=== PATIENT | female | born 1995 | race Caucasian/White ===

== ENCOUNTER 2018-12-01 19:17 | Emergency (ER) | payer BC ==
[2018-12-01] MEDS ORDERED: Acetaminophen 325 MG Tab PO ONE (19:49)
[2018-12-01] MEDS ORDERED: Sodium Chloride 0.9% 1,000 ML IV ONE (19:49)
--- NOTE | 2018-12-01 20:05 | EDM.PDOC ---
ED HPI GENERAL MEDICAL PROBLEM - General Chief Complaint: Chest Pain Stated Complaint: CHEST PAIN, DIFFICULTY BREATHING Time Seen by Provider: 12/01/18 19:55 Source of Information: Reports: Patient History Limitations: Reports: No Limitations - History of Present Illness INITIAL COMMENTS - FREE TEXT/NARRATIVE: This 23 yo female patient reports to the ED with a headache (started yesterday) and chest pain (started this afternoon). The patient reports she took Tylenol, but did not get any relief. The patient reports increased pressure in her head. The patient reports her chest pain starts near her sternum and radiates to the left side of chest. Onset: Today (chest pain ), Other (head congestion and pressure started yesterday) Duration: Constant, Getting Worse Location: Reports: Head, Chest Quality: Reports: Other Severity: Moderate Improves with: Reports: None Worsens with: Reports: None Associated Symptoms: Reports: Cough, Headaches, Shortness of Breath - Related Data Allergies Allergy/AdvReac Type Severity Reaction Status Date / Time No Known Allergies Allergy Verified 12/01/18 19:49 Home Meds: Home Meds . [No Known Home Meds] 12/01/18 [History] ED ROS GENERAL - Review of Systems Review Of Systems: ROS reveals no pertinent complaints other than HPI. ED EXAM, GENERAL - Physical Exam Exam: See Below Exam Limited By: No Limitations General Appearance: Alert, WD/WN, Moderate Distress Eye Exam: Bilateral Eye: EOMI, Normal Inspection, PERRL Ears: Normal External Exam, Normal Canal, Hearing Grossly Normal, Normal TMs Nose: Normal Inspection, Normal Mucosa, No Blood, Clear Rhinorrhea Throat/Mouth: Normal Inspection, Normal Lips, Normal Teeth, Normal Gums, Normal Oropharynx, Normal Voice, No Airway Compromise Head: Sinus Tenderness (right maxillary) Neck: Normal Inspection, Supple, Non-Tender, Full Range of Motion Respiratory/Chest: No Respiratory Distress, Lungs Clear, Normal Breath Sounds, No Accessory Muscle Use, Chest Non-Tender Cardiovascular: Normal Peripheral Pulses, Regular Rate, Rhythm, No Edema, No Gallop, No JVD, No Murmur, No Rub GI/Abdominal: Normal Bowel Sounds, Soft, Non-Tender, No Organomegaly, No Distention, No Abnormal Bruit, No Mass (Female) Exam: Deferred Rectal (Female) Exam: Deferred Extremities: Normal Inspection, Normal Range of Motion, Non-Tender, Normal Capillary Refill, No Pedal Edema Neurological: Alert, Oriented, CN II-XII Intact, Normal Cognition, Normal Gait, Normal Reflexes, No Motor/Sensory Deficits Psychiatric: Anxious, Tearful Skin Exam: Warm, Dry, Intact, Normal Color, No Rash Lymphatic: No Adenopathy Course - Vital Signs Last Recorded V/S: Last Vital Signs Temp 39.2 C H 12/01/18 19:24 Pulse 111 H 12/01/18 19:24 Resp 16 12/01/18 19:24 BP 130/75 12/01/18 19:24 Pulse Ox 97 12/01/18 19:24 - Orders/Labs/Meds Orders: Active Orders 24 hr Category Date Time Status EKG Documentation Completion [RC] URGENT Care 12/01/18 20:00 Active CULTURE STREP A CONFIRMATION [] Stat Lab 12/01/18 19:31 Results STREP SCRN A RAPID W CULT CONF [] Stat Lab 12/01/18 19:31 Results cefTRIAXone [Rocephin] Med 12/01/18 21:05 Once 1,000 mg IVPUSH ONETIME ONE Labs: Laboratory Tests 12/01/18 12/01/18 12/01/18 Range/Units 20:04 20:04 20:04 WBC 3.1 L (5.0-10.0) 10^3/uL RBC 4.93 (4.2-5.4) 10^6/uL Hgb 13.0 (12.0-16.0) g/dL Hct 39.5 (37.0-47.0) % MCV 80.1 (80-100) fL MCH 26.4 L (27.0-34.0) pg MCHC 32.9 L (33.0-35.0) g/dL Plt Count 198 (150-450) 10^3/uL Neut % (Auto) 68.8 (42.2-75.2) % Lymph % (Auto) 18.7 L (20.5-50.1) % Gooding % (Auto) 11.9 H (2-8) % Eos % (Auto) 0.0 L (1.0-3.0) % Baso % (Auto) 0.6 (0.0-1.0) % D-Dimer, Quantitative 334 (0-400) ng/mL Sodium 135 (135-145) mmol/L Potassium 3.4 L (3.6-5.0) mmol/L Chloride 101 (101-111) mmol/L Carbon Dioxide 24.0 (21.0-31.0) mmol/L Anion Gap 13.4 BUN 12 (7-18) mg/dL Creatinine 0.9 (0.6-1.3) mg/dL Est Cr Clr Drug Dosing 92.56 mL/min Estimated GFR (MDRD) > 60 BUN/Creatinine Ratio 13.33 Glucose 108 H (74-105) mg/dL Calcium 9.0 (8.4-10.2) mg/dl Total Bilirubin 0.6 (0.2-1.0) mg/dL AST 23 (10-42) IU/L ALT 14 (10-60) IU/L Alkaline Phosphatase 61 (42-121) IU/L Troponin I (0.00-0.02) ng/ml Total Protein 7.7 (6.7-8.2) g/dl Albumin 4.4 (3.2-5.5) g/dl Globulin 3.3 Albumin/Globulin Ratio 1.33 // Range/Units 20:04 WBC (5.0-10.0) 10^3/uL RBC (4.2-5.4) 10^6/uL Hgb (12.0-16.0) g/dL Hct (37.0-47.0) % MCV (80-100) fL MCH (27.0-34.0) pg MCHC (33.0-35.0) g/dL Plt Count (150-450) 10^3/uL Neut % (Auto) (42.2-75.2) % Lymph % (Auto) (20.5-50.1) % Gooding % (Auto) (2-8) % Eos % (Auto) (1.0-3.0) % Baso % (Auto) (0.0-1.0) % D-Dimer, Quantitative (0-400) ng/mL Sodium (135-145) mmol/L Potassium (3.6-5.0) mmol/L Chloride (101-111) mmol/L Carbon Dioxide (21.0-31.0) mmol/L Anion Gap BUN (7-18) mg/dL Creatinine (0.6-1.3) mg/dL Est Cr Clr Drug Dosing mL/min Estimated GFR (MDRD) BUN/Creatinine Ratio Glucose (74-105) mg/dL Calcium (8.4-10.2) mg/dl Total Bilirubin (0.2-1.0) mg/dL AST (10-42) IU/L ALT (10-60) IU/L Alkaline Phosphatase (42-121) IU/L Troponin I < 0.02 (0.00-0.02) ng/ml Total Protein (6.7-8.2) g/dl Albumin (3.2-5.5) g/dl Globulin Albumin/Globulin Ratio Meds: Medications Discontinued Medications Generic Name Dose Route Start Last Admin Trade Name Freq PRN Reason Stop Dose Admin Acetaminophen 650 mg 12/01/18 19:49 12/01/18 19:56 Tylenol PO 12/01/18 19:50 650 mg NOW ONE Administration Sodium Chloride 1,000 mls @ 999 mls/hr 12/01/18 19:49 12/01/18 20:08 Normal Saline IV 12/01/18 20:49 999 mls/hr .BOLUS ONE Administration Departure - Departure Time of Disposition: 21:05 Disposition: Home, Self-Care 01 Condition: Fair Clinical Impression: Bronchitis Acute sinusitis Qualifiers: Sinusitis location: maxillary Recurrence: non-recurrent Qualified Code(s): J01.00 - Acute maxillary sinusitis, unspecified - Discharge Information *PRESCRIPTION DRUG MONITORING PROGRAM REVIEWED*: Not Applicable *COPY OF PRESCRIPTION DRUG MONITORING REPORT IN PATIENT DAVID: Not Applicable Instructions: Sinusitis, Adult, [id number], Upper Respiratory Infection, Adult, [id number] Forms: ED Department Discharge Care Plan Goals: The patient was advised of the examination, lab, EKG and x-ray results during the visit. The patient was given IV fluids, IV Rocephin and an oral dose of Tylenol while in the ED. The patient was discharged with a script for Azithromycin (250 mg) #6 to take 2 by mouth on day 1 and 1 by mouth on days 2- 5. The patient may take [id number] medications for temporary symptom relief. If the patient has any additional symptoms or concerns, the patient should either return to the emergency department or visit her primary care facility. - My Orders Last 24 Hours: My Active Orders 12/01/18 19:31 CULTURE STREP A CONFIRMATION [RM] Stat STREP SCRN A RAPID W CULT CONF [RM] Stat 12/01/18 20:00 EKG Documentation Completion [RC] URGENT 12/01/18 21:05 cefTRIAXone [Rocephin] 1,000 mg IVPUSH ONETIME ONE - Assessment/Plan Last 24 Hours: My Active Orders 12/01/18 19:31 CULTURE STREP A CONFIRMATION [RM] Stat STREP SCRN A RAPID W CULT CONF [RM] Stat 12/01/18 20:00 EKG Documentation Completion [RC] URGENT 12/01/18 21:05 cefTRIAXone [Rocephin] 1,000 mg IVPUSH ONETIME ONE
[2018-12-01 20:31] LABS: ANION GAP 13.4; CHLORIDE,CL 101 mmol/L (101-111); SODIUM,NA 135 mmol/L (135-145)
[2018-12-01] MEDS ORDERED: cefTRIAXone 500 MG Vial IVPUSH ONE (21:05)
[2018-12-01] MEDS ORDERED: Ibuprofen 800 MG Tab PO ONE (21:09)
== END 2018-12-01 21:57 | disposition home or self-care (01) ==
LOC: DL.ED 19:17
DX: J01.00 Acute maxillary sinusitis, unspecified (principal); J40 Bronchitis, not specified as acute or chronic
CPT/HCPCS: 36415; 71045; 80053; 84484; 85025; 85379; 87081; 87430; 96361; 96374; 99285; A9270; J0696; J7030